=== PATIENT | female | born 1990 | race African-American/Black ===

== ENCOUNTER 2016-10-04 21:49 | Emergency (ER) | payer OTHER ==
[~2016-10-04] VITALS: Ht 163.8 cm; Wt 72.6 kg
[~2016-10-04 21:49] MED LIST: BLM PO; ZITHROMAX Z-PA250 M1 PO
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
[2016-10-04 23:54] VITALS: BP 124/79
== END 2016-10-04 23:55 ==
LOC: ERH 21:49
DX: S06.0X0A Concussion without loss of consciousness, initial encounter (principal); S16.1XXA Strain of muscle, fascia and tendon at neck level, initial encounter; V43.52XA Car driver injured in collision with other type car in traffic accident, initial encounter
CPT/HCPCS: 81025